=== PATIENT | female | born 1955 | race Caucasian/White ===

== ENCOUNTER → 2017-06-07 | Outpatient (CLI) | payer BC ==
[~2017-06-07] MED LIST: ASPIRIN 81M81 MG/TA2 PO; CLEOCIN HC150 MG/CAP PO; CLEOCIN HCL300 MG PO; EFFIENT10 MG PO; GLUCOPHAGE1000 MG PO; LIPITOR20 MG PO; MOTRIN 200200 MG/TAB PO; NITROSTAT0.15 MG SL; NORCO 325 MG-51 TAB PO; PEN-VEE K500 MG PO; PERCOCET 325 MG1 TA2 PO; TOPROL XL 50MG50 MG PO; TYLENOL 500MG500 MG PO; ZESTRIL 5MG5 MG PO; ZOFRAN 4MG T4 MG/TAB PO; ZOLOFT 50MG50 MG PO
[2017-06-07 10:26] LABS: HEMATOCRIT 40.8 % (37.0-47.0); HEMOGLOBIN 14.1 g/dl (12.5-16.0); MEAN CELL VOLUME 88 fl (80.0-100.0); MEAN CORPUSCULAR HEMOGLOBIN 31 pg (27.0-31.0); MEAN CORPUSCULAR HGB CONC 35 g/dl (33.0-37.0); MEAN PLATELET VOLUME 10.7 fl (7.4-10.4); PLATELET COUNT 258 K/mm3 (130-400); RED BLOOD COUNT 4.62 M/mm3 (4.10-5.30); REDCELL DISTRIBUTION WIDTH-CV 12.1 % (11.5-14.5); WHITE BLOOD COUNT 7.7 K/mm3 (4.8-10.8)
[2017-06-07 10:50] LABS: ALBUMIN 4.6 gm/dL (3.5-5.0); BILIRUBIN,TOTAL 0.8 mg/dL (0.0-1.0); CALCIUM 9.5 mg/dL (8.4-10.2); CREATININE, serum 0.61 mg/dL (0.52-1.25); POTASSIUM 4.2 mmol/L (3.4-5.0); TOTAL PROTEIN 7.9 gm/dL (6.4-8.2)
[2017-06-07 11:18] LABS: THYROID STIMULATING HORMONE 1.97 uIU/mL (0.465-4.680)
== END ==
LOC: COL.LAB 08:30
PROVIDERS: Family Medicine
DX: I25.10 Atherosclerotic heart disease of native coronary artery without angina pectoris (principal); I10 Essential (primary) hypertension; E78.5 Hyperlipidemia, unspecified

== ENCOUNTER 2018-04-07 19:08 | Emergency (ER) | payer OTHER ==
[~2018-04-07] VITALS: Ht 165.1 cm; Wt 86.4 kg
[2018-04-07 19:14] VITALS: TEMP 97.5
[2018-04-07 20:05] VITALS: BP 139/81
[2018-04-07 20:33] LABS: COLLECTION METHOD CLEAN CATCH
[2018-04-07 20:41] LABS: PH 7 (5-8); SQUAMOUS EPITHELIAL 0-2 /hpf; URINE APPEARANCE Clear; URINE BACTERIA None Seen /hpf; URINE BILIRUBIN Negative (NEGATIVE); URINE BLOOD 1+ (NEGATIVE); URINE COLOR Yellow; URINE GLUCOSE Negative (NEGATIVE); URINE KETONE Negative (NEGATIVE); URINE LEUKOCYTE ESTERASE Negative (NEGATIVE); URINE NITRATE Negative (NEGATIVE); URINE PROTEIN(semi-quant) Negative (NEGATIVE); URINE RBC 0-2 /hpf; URINE UROBILINOGEN Negative (NEGATIVE)
[2018-04-07 20:47] LABS: BASO % 0.4 % (0.0-2.0); EOS # 0.1 (0.0-0.7); EOS % 1.1 % (0-4.0); GRAN # 6.5 (1.4-6.5); GRAN % 62.1 % (42.2-75.2); HEMATOCRIT 40.3 % (37.0-47.0); HEMOGLOBIN 13.8 g/dl (12.5-16.0); LYMPH # 3.1 (1.2-3.4); LYMPH % 29.9 % (20.0-51.0); MEAN CELL VOLUME 88 fl (80.0-100.0); MEAN CORPUSCULAR HEMOGLOBIN 30 pg (27.0-31.0); MEAN CORPUSCULAR HGB CONC 34 g/dl (33.0-37.0); MEAN PLATELET VOLUME 10.2 fl (7.4-10.4); MONO # 0.6 (0.1-0.6); MONO % 6.1 % (1.7-9.3); PLATELET COUNT 306 K/mm3 (130-400); REDCELL DISTRIBUTION WIDTH-CV 12.2 % (11.5-14.5)
[2018-04-07 20:56] LABS: ALANINE AMINOTRANSFERASE 33 U/L (9-52); ALBUMIN 4.3 gm/dL (3.5-5.0); ALKALINE PHOSPHATASE 107 U/L (50-136); ANION GAP 14 mmol/L (7-16); AST,SGOT 37 U/L (15-37); BILIRUBIN,TOTAL 0.7 mg/dL (0.0-1.0); BLOOD UREA NITROGEN 15 mg/dL (7-17); CALCIUM 9.6 mg/dL (8.4-10.2); CARBON DIOXIDE 23 mmol/L (22-30); CHLORIDE 103 mmol/L (98-107); CREATININE, serum 0.64 mg/dL (0.52-1.25); GLUCOSE 131 mg/dL (74-106); POTASSIUM 4.3 mmol/L (3.4-5.0); SODIUM 140 mmol/L (137-145); TOTAL PROTEIN 8.3 gm/dL (6.4-8.2)
[2018-04-07 21:06] LABS: TROPONIN-I < 0.012 ng/mL (0.000-0.034)
[2018-04-07 22:43] VITALS: PULSE 67
== END 2018-04-07 22:43 | disposition home or self-care (01) ==
LOC: COL.ER 19:08
PROVIDERS: Emergency Medicine
DX: R55 Syncope and collapse (principal); E11.9 Type 2 diabetes mellitus without complications; I10 Essential (primary) hypertension; I25.10 Atherosclerotic heart disease of native coronary artery without angina pectoris; F17.210 Nicotine dependence, cigarettes, uncomplicated; Z79.82 Long term (current) use of aspirin; Z79.84 Long term (current) use of oral hypoglycemic drugs

== ENCOUNTER 2019-03-28 10:44 | Observation (INO) | payer OTHER ==
[~2019-03-28] VITALS: Ht 165.2 cm; Wt 87.9 kg
[2019-03-28 11:22] LABS: BASO # 0.1 (0.0-0.2); BASO % 0.5 % (0.0-2.0); EOS # 0.2 (0.0-0.7); EOS % 1.5 % (0-4.0); GRAN # 5.7 (1.4-6.5); GRAN % 57.9 % (42.2-75.2); HEMATOCRIT 38.4 % (37.0-47.0); HEMOGLOBIN 12.7 g/dl (12.5-16.0); LYMPH # 3.2 (1.2-3.4); MEAN CELL VOLUME 92 fl (80.0-100.0); MEAN CORPUSCULAR HEMOGLOBIN 31 pg (27.0-31.0); MEAN CORPUSCULAR HGB CONC 33 g/dl (33.0-37.0); MONO # 0.7 (0.1-0.6); MONO % 6.7 % (1.7-9.3); PLATELET COUNT 284 K/mm3 (130-400); RED BLOOD COUNT 4.16 M/mm3 (4.10-5.30)
[2019-03-28 11:25] LABS: PROTHROMBIN TIME 11.1 SECONDS (9.7-12.8)
[2019-03-28 11:27] LABS: ALANINE AMINOTRANSFERASE 25 U/L (9-52); ALBUMIN 3.9 gm/dL (3.5-5.0); ALKALINE PHOSPHATASE 77 U/L (50-136); ANION GAP 11 mmol/L (7-16); AST,SGOT 29 U/L (15-37); BILIRUBIN,TOTAL 0.6 mg/dL (0.0-1.0); BLOOD UREA NITROGEN 29 mg/dL (7-17); CALCIUM 9.7 mg/dL (8.4-10.2); CARBON DIOXIDE 27 mmol/L (22-30); CHLORIDE 103 mmol/L (98-107); GLUCOSE 147 mg/dL (74-106); LIPASE 173 U/L (23-300); SODIUM 141 mmol/L (137-145); TOTAL PROTEIN 7.2 gm/dL (6.4-8.2)
[2019-03-28 11:28] LABS: PARTIAL THROMBOPLASTIN TIME 32.8 SECONDS (26.0-37.0)
[2019-03-28 11:39] LABS: TROPONIN-I < 0.012 ng/mL (0.000-0.035)
[2019-03-28 17:35] VITALS: BP 117/59; PULSE 60; TEMP 97.9
--- NOTE | 2019-03-28 19:27 | NUR ---
Pt alert and oriented. Pt IV patent no redness or infiltration. Pt denies pain. Pt NPO after midnight. Meds reviewed. Pt assessed. Pt has call light in reach and telemetry in place.
[2019-03-28 20:05] VITALS: BP 127/58; PULSE 78; TEMP 98.1
[2019-03-29] VITALS (7 sets, daily range): BP systolic 94–129; BP diastolic 38–66; PULSE 57–92; TEMP 97.7–98.3
[2019-03-29 06:17] LABS: CHOLESTEROL 184 mg/dL (120-200); CHOLESTEROL RISK RATIO 4.4; HDL CHOLESTEROL 41 mg/dL; LDL CHOLESTEROL 79 mg/dL; TRIGLYCERIDE 320 mg/dL
[2019-03-29 06:31] LABS: TROPONIN-I < 0.012 ng/mL (0.000-0.035)
--- NOTE | 2019-03-29 07:00 | NUR ---
Patient report given to BRIDGETTE Dennison. Patient sitting up on the side of the bed at this time. Denies pain. Hasn't had any pain all night. Waiting to go down for treadmill stress test this am.
--- NOTE | 2019-03-29 07:10 | NUR ---
Received report, met patient. Noted to be sitting up on side of bed. She asked when her stress test is scheduled. Did notify there was no time set as of now. She stated she was up and freshened up. Denies pain. Personal items and call light is within reach.
--- NOTE | 2019-03-29 11:57 | NUR ---
Initial visit; Patient thanked Bolt Sawyer for looking in on her, listening and wishing her well.
--- NOTE | 2019-03-29 13:45 | NUR ---
SW attempted to meet with patient about discharge planning. Patient was sleeping. ANDREW bety try back later today.
--- NOTE | 2019-03-29 15:16 | NUR ---
SW met with patient to discuss discharge planning. Patient lives independently at home and plans to return there when she is discharged. Patient's PCP is Dr Thayer and she obtains prescriptions from [facility]. Patient does not use any DME or home health. Patient does not have a DPOA but SW provided the form per request. SW does not anticipate any discharge needs.
--- NOTE | 2019-03-29 17:40 | NUR ---
Patient discharged home at 1735. Was escorted to ER entrance by [facility] staff where she received a ride home with a friend. All belongings sent with patient.
== END 2019-03-29 17:35 | disposition home or self-care (01) ==
LOC: COL.ER 10:44 → MEDICAL 13:47
PROVIDERS: Emergency Medicine; Physician Assistant; ADMIT Internal Medicine
DX: R07.9 Chest pain, unspecified (principal); E11.9 Type 2 diabetes mellitus without complications; F32.9 Major depressive disorder, single episode, unspecified; I25.10 Atherosclerotic heart disease of native coronary artery without angina pectoris; Z95.5 Presence of coronary angioplasty implant and graft; F41.9 Anxiety disorder, unspecified; E78.1 Pure hyperglyceridemia; Z79.82 Long term (current) use of aspirin; Z90.710 Acquired absence of both cervix and uterus; Z80.0 Family history of malignant neoplasm of digestive organs; Z87.891 Personal history of nicotine dependence
CPT/HCPCS: A9500; G0378; J1650; J7030

== ENCOUNTER → 2020-10-16 | Outpatient (CLI) | payer OTHER | LOC: MC.RAD 08:27 | DX: Z12.31 Encounter for screening mammogram for malignant neoplasm of breast (principal); N64.89 Other specified disorders of breast ==

== ENCOUNTER → 2020-10-24 | Outpatient (CLI) | payer OTHER | LOC: MC.RAD 10:58 | DX: N64.89 Other specified disorders of breast (principal) ==

== ENCOUNTER → 2022-04-01 | Outpatient (CLI) | payer MEDICARE | LOC: COL.RAD 10:50 | DX: L02.91 Cutaneous abscess, unspecified (principal) ==

== ENCOUNTER 2022-06-15 23:04 | Emergency (ER) | payer MEDICARE ==
[~2022-06-15] VITALS: Ht 165.1 cm; Wt 80.5 kg
[2022-06-16 00:35] LABS: BASO # 0.1 K/mm3 (0.0-0.2); BASO % 0.5 % (0.0-2.0); EOS # 0.2 K/mm3 (0.0-0.7); EOS % 1.8 % (0.0-4.0); GRAN # 5.5 K/mm3 (1.4-6.5); GRAN % 55.7 % (42.2-75.2); HEMATOCRIT 43.8 % (37.0-47.0); HEMOGLOBIN 14.7 g/dl (12.5-16.0); LYMPH # 3.5 K/mm3 (1.2-3.4); LYMPH % 35.1 % (20.0-51.0); MEAN CELL VOLUME 92 fl (80.0-100.0); MEAN CORPUSCULAR HEMOGLOBIN 31 pg (27-31); MEAN CORPUSCULAR HGB CONC 34 g/dl (33.0-37.0); MEAN PLATELET VOLUME 9.8 fl (7.4-10.4); MONO # 0.6 K/mm3 (0.1-0.6); MONO % 6.4 % (1.7-9.3); PLATELET COUNT 287 K/mm3 (130-400); RED BLOOD COUNT 4.77 M/mm3 (4.10-5.30); REDCELL DISTRIBUTION WIDTH-CV 12.4 % (11.5-14.5)
[2022-06-16 01:02] LABS: ALBUMIN 3.9 gm/dL (3.4-4.8); ANION GAP 13 mmol/L (7-16); BLOOD UREA NITROGEN 17 mg/dL (10-20); CALCIUM 10.1 mg/dL (8.4-10.2); CARBON DIOXIDE 22 mmol/L (23-31); CHLORIDE 104 mmol/L (98-107); CREATININE, serum 0.88 mg/dL (0.57-1.11); GLUCOSE 244 mg/dL (70-99); PHOSPHOROUS 3.9 mg/dL (2.3-4.7); POTASSIUM 4.2 mmol/L (3.5-4.5); SODIUM 139 mmol/L (136-145)
[2022-06-16 01:07] LABS: TROPONIN-I < 0.010 ng/mL (0.00-0.033)
[2022-06-16 02:13] VITALS: BP 147/78; PULSE 79; TEMP 98.1
== END 2022-06-16 02:13 | disposition home or self-care (01) ==
LOC: COL.ER 23:04
PROVIDERS: Emergency Medicine
DX: U07.1 COVID-19 (principal); R00.0 Tachycardia, unspecified; Z73.0 Burn-out
CPT/HCPCS: J7120